=== PATIENT | female | born 1970 | race Caucasian/White ===

== ENCOUNTER 2022-07-07 17:33 | Emergency (ER) | payer BC ==
[~2022-07-07] VITALS: Ht 167.6 cm; Wt 65.8 kg
[2022-07-07 17:41] VITALS: BP 142/98
--- NOTE | 2022-07-07 17:59 | NUR ---
52y/o female presents to ED with c/o worsening neck pain x1week. Pt reports a constant sharp stabbing like 10/10 neck pain that radiates to left shoulder. Pt reports having chronic neck pain for 3+ years . Pt reports taking Gabapentin at 1000 this morning and a muscle relaxer at 0700 this morning with no relief. Pt reports feeling weak today, denies fever, chills, cold symptoms, and UTI symptoms.
[2022-07-07] MEDS ORDERED: KETOROLAC 30 MG/ML VIAL IM ONE (18:20)
[2022-07-07 18:38] LABS: BASOPHILS # (AUTO) 0.1 K/uL (0.00-0.22); BASOPHILS % (AUTO) 0.7 % (0.0-2.0); EOSINOPHILS # (AUTO) 0.1 K/uL (0-0.4); EOSINOPHILS % (AUTO) 1.2 % (0.0-4.0); HEMATOCRIT 45.8 % (36-48); HEMOGLOBIN 16.2 g/dL (12.0-16.0); LYMPHOCYTES % (AUTO) 21.2 % (20.5-51.1); MEAN CORPUSCULAR HEMOGLOBIN 35 pg (27-31); MEAN CORPUSCULAR HGB CONC 35 g/dL (33-37); MEAN CORPUSCULAR VOLUME 97.6 fL (80-94); MONOCYTES # (AUTO) 0.8 K/uL (0.8-1.0); MONOCYTES % (AUTO) 8.3 % (1.7-9.3); NEUTROPHILS # (AUTO) 6.6 K/uL (1.8-7.7); NEUTROPHILS % (AUTO) 68.6 % (42.2-75.2); PLATELET COUNT (AUTO) 413 K/uL (140-450); RED BLOOD CELL COUNT(AUTO) 4.69 MIL/uL (4.20-5.40); WHITE BLOOD COUNT (AUTO) 9.6 K/uL (4.8-10.8)
--- NOTE | 2022-07-07 18:40 | NUR ---
Flu and Naomi swabs collected and walked to lab.
--- NOTE | 2022-07-07 18:58 | NUR ---
Pt taken to CT/Xray via w/c.
[2022-07-07 18:59] LABS: ALBUMIN 3.5 g/dL (3.4-5.0); CARBON DIOXIDE 24.4 mmol/L (21-32); CREATININE 0.8 mg/dL (0.6-1.3); TOTAL BILIRUBIN 0.2 mg/dL (0.0-1.0)
[2022-07-07 19:07] LABS: ANION GAP 16.2 (8-16); POTASSIUM 3.6 mmol/L (3.5-5.1)
--- NOTE | 2022-07-07 19:17 | NUR ---
Pt report given to ADELINA Lopez. Transfer of care at this time.
--- NOTE | 2022-07-07 19:20 | NUR ---
ASSUMED CARE OF PT AT THIS TIME. PT IN POSITION OF COMFORT. CONTINUES WITH 8/[address] BENEDICT IS AWARE AND WILL ORDER MEDICATION. VSS. WILL CONTINUE TO MONITOR.
[2022-07-07] MEDS ORDERED: MORPHINE SULFATE 4 MG/ML SYR IM ONE (19:25)
[2022-07-07] MEDS ORDERED: PRED20TA5 PO (20:34)
[2022-07-07 20:54] VITALS: BP 136/88
== END 2022-07-07 20:51 | disposition home or self-care (01) ==
LOC: MED 17:33
DX: G89.29 Other chronic pain (principal); Z20.822 Contact with and (suspected) exposure to COVID-19; M54.2 Cervicalgia; E04.1 Nontoxic single thyroid nodule; Z79.899 Other long term (current) drug therapy
CPT/HCPCS: 36415; 72125; 73030; 80053; 85025; 87426; 87804; 96372; 99285; J1885; J2270

== ENCOUNTER 2023-04-14 12:49 | Emergency (ER) | payer BC ==
[~2023-04-14] VITALS: Ht 172.7 cm; Wt 74.8 kg
[~2023-04-14 12:49] MED LIST: PRED20TA5 PO
[2023-04-14 13:15] VITALS: BP 135/80; PULSE 88; RESP 16; TEMP 97.9; O2SAT 99
[2023-04-14] MEDS ORDERED: KETOROLAC 30 MG/ML VIAL IM ONE (15:10)
[2023-04-14] MEDS ORDERED: PROM118S5 PO ×2 (16:16→16:25)
[2023-04-14] MEDS ORDERED: SUD30 PO ×2 (16:16→16:25)
[2023-04-14] MEDS ORDERED: LEVO-481 PO ×2 (16:16→16:25)
[2023-04-14 16:40] VITALS: BP 130/77; PULSE 88; RESP 16; TEMP 97.9; O2SAT 99
== END 2023-04-14 16:41 | disposition home or self-care (01) ==
LOC: MED 12:49
DX: J20.9 Acute bronchitis, unspecified (principal); J32.9 Chronic sinusitis, unspecified; Z79.899 Other long term (current) drug therapy
CPT/HCPCS: 71045; 96372; 99283; J1885